=== PATIENT | male | born 1985 | race Caucasian/White ===

== ENCOUNTER 2023-10-15 08:12 | Emergency (ER) | payer MEDICAID ==
[~2023-10-15] VITALS: Ht 162.6 cm; Wt 81.6 kg
[2023-10-15] MEDS ORDERED: BACI/NEOM/POLY B OINT PKT 1 UDPKT PACKET TP ONE (08:30)
[2023-10-15] MEDS ORDERED: TDAP [DIPH/PERTUSSIS/TET] 0.5 ML VIAL IM ONE ×2 (08:30→08:40)
[2023-10-15] MEDS ORDERED: ACETAMINOPHEN ES 500 MG TABLET PO ONE (08:30)
[2023-10-15] MEDS ORDERED: ACETAMINOPHEN ES 500 MG TABLET ONE (08:40)
[2023-10-15] MEDS ORDERED: BACI/NEOM/POLY B OINT PKT 1 UDPKT PACKET ONE (08:40)
[2023-10-15] MEDS ORDERED: IBUP-1955 PO (08:46)
[2023-10-15] MEDS ORDERED: BENZOIN COMPOUND TINCT 60 ML BOTTLE ONE (10:17)
[2023-10-15] MEDS ORDERED: CEPH500C2 PO (10:34)
[2023-10-15 11:19] VITALS: BP 126/75; TEMP 98.2; O2SAT 99
== END 2023-10-15 11:20 | disposition home or self-care (01) ==
LOC: ER 08:12
DX: S62.332A Displaced fracture of neck of third metacarpal bone, right hand, initial encounter for closed fracture (principal); S00.212A Abrasion of left eyelid and periocular area, initial encounter; S49.92XA Unspecified injury of left shoulder and upper arm, initial encounter; S09.90XA Unspecified injury of head, initial encounter; Y08.89XA Assault by other specified means, initial encounter; Y93.89 Activity, other specified; Y92.89 Other specified places as the place of occurrence of the external cause; Y99.8 Other external cause status
CPT/HCPCS: 29125; 70450; 71045; 72125; 73030; 73130; 90471; 90715; 99285; A6403